=== PATIENT | female | born 1950 | race African-American/Black ===

== ENCOUNTER 2023-05-10 13:53 | Inpatient (IN) | payer MEDICARE, MEDICAID ==
[~2023-05-10] VITALS: Ht 322.6 cm; Wt 99.8 kg
[2023-05-10 14:12] VITALS: O2SAT 98
[2023-05-10 14:47] LABS: EOSINOPHILS % 0.7 % (0.0-5.0); HEMATOCRIT. 38.6 % (36.0-48.0); LYMPHOCYTES % 25.2 % (20.0-50.0); MEAN CORPUSCULAR HGB CONC 33.8 g/dL (31.0-37.0); MEAN CORPUSCULAR VOLUME 91.7 fL (81.0-99.0); MEAN PLATELET VOLUME 8.5 fl (7.4-10.4); MONOCYTES % 9.4 % (2.0-8.0); NEUTROPHILS % 63.7 % (40.0-76.0); PLATELET 304 x1000/uL (130-400); RED BLOOD CELL COUNT 4.21 mill/uL (4.2-5.4); RED CELL DISTRIBUTION WIDTH 13.6 % (11.6-14.6); WHITE BLOOD COUNT 6.3 x1000/uL (4.5-11.0)
[2023-05-10 14:57] LABS: INR 1.1; PROTHROMBIN TIME 11.5 sec (9.6-11.0)
[2023-05-10 14:59] LABS: CHLORIDE 106 mEq/L (98-107); INDEX HEMOLYSI 1 (1-3); INDEX ICTERIC 1 (1-4); INDEX LIPEMIC 1 (1-3); POTASSIUM 3.5 mEq/L (3.5-5.1); SODIUM 136 mEq/L (136-145)
[2023-05-10 15:11] LABS: ALANINE AMINOTRANSFERASE 20 IU/L (13-61); ALBUMIN 3.5 g/dL (3.4-5.0); ASPARTATE AMINOTRANSFERASE 28 IU/L (15-37); BILIRUBIN TOTAL 0.4 mg/dL (0.1-1.0); CARBON DIOXIDE 21 mEq/L (21-32); CREATININE 1.8 mg/dL (0.6-1.3); GLUCOSE 150 mg/dL (70-105); NT PRO B-TYPE NATRIURETIC PEP 451 pg/mL (5-125); PROTEIN TOTAL 8.3 g/dL (6.0-8.3); TROPONIN I HIGH SENSITIVITY 13 ng/L (<54); UREA NITROGEN BLOOD 15 mg/dL (7-21)
[2023-05-10 15:14] LABS: CALCIUM 9.2 mg/dL (8.5-10.1)
[2023-05-10] MEDS ORDERED: SODIUM CHLORIDE 0.9% 1,000 ML IV ONE (16:15)
[2023-05-10 17:06] LABS: CLARITY URINE CLOUDY (CLEAR); COLOR URINE YELLOW (YELLOW); GLUCOSE URINE NEGATIVE (NEGATIVE); KETONES URINE TRACE (NEGATIVE); LEUKOCYTE ESTERASE URINE 1+ (NEGATIVE); NITRITE URINE NEGATIVE (NEGATIVE); OCCULT BLOOD URINE NEGATIVE (NEGATIVE); PROTEIN URINE 1+ (NEGATIVE); SPECIFIC GRAVITY URINE 1.009 (1.005-1.030); UROBILINOGEN URINE 0.2 E.U./dL (0.2-1.0)
[2023-05-10 17:48] LABS: SQUAMOUS EPITHELIAL CELL URINE 1+ /lpf (RARE/1+)
[2023-05-10 17:49] LABS: RBC URINE 0-2 /hpf (0-2)
[2023-05-10 17:50] LABS: BACTERIA URINE 3+; YEAST URINE NONE SEEN
[2023-05-10] MEDS ORDERED: CEFTRIAXONE 1GM PREMIX 50 ML IV ONE (19:00)
[2023-05-10] MEDS ORDERED: CLONIDINE 0.1MG TABLET PO PRN (20:15)
[2023-05-10] MEDS ORDERED: DEXTROSE 50% WATER 50ML SYRINGE IV PRN (20:15)
[2023-05-10] MEDS: SODIUM CHLORIDE 0.9% 1,000 ML IV SCH (20:15)
[2023-05-10] MEDS ORDERED: DIPHENHYDRAMINE 50MG/ML VIAL IV PRN (20:15)
[2023-05-10] MEDS ORDERED: ACETAMINOPHEN 325MG TABLET PO PRN (20:15)
[2023-05-10] MEDS ORDERED: GUAIFENESIN 200MG/10ML SUGAR FREE UDC PO PRN (20:15)
[2023-05-10] MEDS ORDERED: IPRATROPIUM/ALBUTEROL 0.5-3(2.5)MG/3ML NEB HHN PRN (20:15)
[2023-05-10] MEDS ORDERED: DOCUSATE SODIUM 100MG CAPSULE PO PRN (20:15)
[2023-05-10] MEDS ORDERED: MAGNESIUM/ALUMINUM HYDROXIDE/SIMETHICONE 30ML UDC PO PRN (20:15)
[2023-05-10] MEDS: BLOOD SUGAR DIAGNOSTIC STRIP TEST SCH (21:00)
[2023-05-10] MEDS: INSULIN LISPRO 100 UNITS/ML SUBCUT SCH (21:00)
[2023-05-10] MEDS ORDERED: FAMOTIDINE 20MG/2ML VIAL IV SCH (21:00)
[2023-05-10] MEDS ORDERED: CEFTRIAXONE 1GM PREMIX 50 ML IV NR (21:30)
[2023-05-11] VITALS (7 sets, daily range): BP systolic 142–218; BP diastolic 67–89; PULSE 77–94; RESP 18–20; TEMP 97.4–98.8
[2023-05-11 01:11] LABS: CREATINE KINASE MB FRACTION 2.4 ng/mL (0.5-3.6)
[2023-05-11] MEDS: BLOOD SUGAR DIAGNOSTIC STRIP TEST SCH ×3 (06:28→21:00)
[2023-05-11] MEDS: INSULIN LISPRO 100 UNITS/ML SUBCUT SCH ×3 (06:33→21:00)
[2023-05-11 06:36] LABS: EOSINOPHILS % 1.3 % (0.0-5.0); HEMATOCRIT. 39.9 % (36.0-48.0); HEMOGLOBIN. 13.3 g/dL (12.0-16.0); LYMPHOCYTES % 36.7 % (20.0-50.0); MEAN CORPUSCULAR HEMOGLOBIN 30.6 pg (28.0-32.0); MEAN CORPUSCULAR HGB CONC 33.4 g/dL (31.0-37.0); MEAN CORPUSCULAR VOLUME 91.5 fL (81.0-99.0); MONOCYTES % 10.1 % (2.0-8.0); NEUTROPHILS % 50.9 % (40.0-76.0); PLATELET 307 x1000/uL (130-400); RED BLOOD CELL COUNT 4.36 mill/uL (4.2-5.4); RED CELL DISTRIBUTION WIDTH 13.5 % (11.6-14.6); WHITE BLOOD COUNT 6.4 x1000/uL (4.5-11.0)
[2023-05-11 07:38] LABS: CHLORIDE 104 mEq/L (98-107); INDEX HEMOLYSI 1 (1-3); INDEX ICTERIC 1 (1-4); INDEX LIPEMIC 1 (1-3); POTASSIUM 3.2 mEq/L (3.5-5.1); SODIUM 136 mEq/L (136-145)
[2023-05-11 07:53] LABS: ALANINE AMINOTRANSFERASE 22 IU/L (13-61); ALBUMIN 3.3 g/dL (3.4-5.0); ASPARTATE AMINOTRANSFERASE 32 IU/L (15-37); BILIRUBIN TOTAL 0.6 mg/dL (0.1-1.0); CALCIUM 9.2 mg/dL (8.5-10.1); CARBON DIOXIDE 24 mEq/L (21-32); CHOLESTEROL 207 mg/dL (<200); CREATINE KINASE MB FRACTION 2.4 ng/mL (0.5-3.6); CREATININE 1.3 mg/dL (0.6-1.3); GLUCOSE 108 mg/dL (70-105); HDL CHOLESTEROL 69 mg/dL (40-59); LDL CHOLESTEROL 129 mg/dL (5-100); PROTEIN TOTAL 8.3 g/dL (6.0-8.3); T4 FREE 1.23 ng/dL (0.76-1.46); TRIGLYCERIDE 83 mg/dL (0-150); TROPONIN I HIGH SENSITIVITY 28 ng/L (<54); UREA NITROGEN BLOOD 11 mg/dL (7-21)
[2023-05-11] MEDS: AMLODIPINE 5MG TABLET PO SCH (09:00)
[2023-05-11] MEDS ORDERED: PANTOPRAZOLE SODIUM 40 MG/VIAL IV SCH (09:00)
[2023-05-11] MEDS ORDERED: ENOXAPARIN 30MG/0.3ML SYR SUBCUT SCH (09:00)
[2023-05-11] MEDS: SODIUM CHLORIDE 0.9% 1,000 ML IV SCH ×2 (09:35→22:55)
[2023-05-11] MEDS ORDERED: POTASSIUM CHLORIDE 20MEQ/PACKET PO NR (09:45)
[2023-05-11 11:01] LABS: *AMPHETAMINES SCREEN URINE NEGATIVE (NEGATIVE); *BARBITURATES SCREEN URINE NEGATIVE (NEGATIVE); *BENZODIAZEPINES SCREEN URINE NEGATIVE (NEGATIVE); *COCAINE SCREEN URINE NEGATIVE (NEGATIVE); CANNABINOID URINE SCREEN NEGATIVE (NEGATIVE); ECSTASY MDMA SCREEN URINE NEGATIVE (NEGATIVE); METHADONE URINE SCREEN NEGATIVE (NEGATIVE); OPIATES URINE SCREEN NEGATIVE (NEGATIVE); PHENCYCLIDINE URINE SCREEN NEGATIVE (NEGATIVE)
[2023-05-11] MEDS ORDERED: CEFTRIAXONE 1,000 MG in DEXTROSE 5% WATER 50 ML IV SCH (21:00)
[2023-05-11] MEDS: ATORVASTATIN CALCIUM 20MG TABLET PO SCH (21:00)
[2023-05-12] MEDS ORDERED: HALOPERIDOL LACTATE 5MG/ML VIAL IM PRN ×2 (01:00→14:00)
[2023-05-12] MEDS ORDERED: HALOPERIDOL LACTATE 5MG/ML VIAL IM NR (01:15)
[2023-05-12] MEDS ORDERED: DIPHENHYDRAMINE 50MG/ML VIAL IM NR (01:15)
[2023-05-12] MEDS ORDERED: LORAZEPAM 2MG/ML CPJ IM NR (01:15)
[2023-05-12 04:00] VITALS: BP 113/69; PULSE 82; RESP 20; TEMP 97.8
[2023-05-12] MEDS: BLOOD SUGAR DIAGNOSTIC STRIP TEST SCH ×3 (06:55→17:20)
[2023-05-12 07:27] LABS: HEMATOCRIT 36.2 % (36.0-48.0); HEMOGLOBIN 12.5 g/dL (12.0-16.0); MEAN CORPUSCULAR HEMOGLOBIN 31.1 pg (28.0-32.0); MEAN CORPUSCULAR HGB CONC 34.5 g/dL (31.0-37.0); MEAN CORPUSCULAR VOLUME 90.2 fL (81.0-99.0); PLATELET 286 x1000/uL (130-400); RED BLOOD CELL COUNT 4.01 mill/uL (4.2-5.4); RED CELL DISTRIBUTION WIDTH 13.5 % (11.6-14.6)
[2023-05-12] MEDS: INSULIN LISPRO 100 UNITS/ML SUBCUT SCH ×3 (07:50→17:46)
[2023-05-12 08:00] VITALS: BP 173/70; PULSE 94; RESP 21; TEMP 96.4
[2023-05-12] MEDS ORDERED: HALO5TAB2 PO (08:10)
[2023-05-12] MEDS ORDERED: FAMOTIDINE 20MG/2ML VIAL IV SCH (09:00)
[2023-05-12] MEDS: ENOXAPARIN 40MG/0.4ML SYR SUBCUT SCH (09:00)
[2023-05-12] MEDS: AMLODIPINE 5MG TABLET PO SCH (09:00)
[2023-05-12 10:37] LABS: POTASSIUM 3.3 mEq/L (3.5-5.1)
[2023-05-12 10:38] LABS: CALCIUM 9.2 mg/dL (8.5-10.1)
[2023-05-12 10:42] LABS: CREATININE 1.2 mg/dL (0.6-1.3); PHOSPHORUS 3.5 mg/dL (2.5-4.9)
[2023-05-12 12:00] VITALS: BP 132/75; PULSE 82; RESP 18; TEMP 97.5
[2023-05-12] MEDS: SODIUM CHLORIDE 0.9% 1,000 ML IV SCH ×2 (12:15→22:19)
[2023-05-12] MEDS ORDERED: MAGNESIUM 2 G PREMIX 50 ML IV SCH (15:00)
[2023-05-12 16:00] VITALS: BP 147/77; PULSE 89; RESP 21; TEMP 98
[2023-05-12 20:52] VITALS: BP 154/60; PULSE 83; RESP 18; TEMP 97.5
[2023-05-12] MEDS: ATORVASTATIN CALCIUM 20MG TABLET PO SCH (21:00)
[2023-05-12] MEDS ORDERED: CEFTRIAXONE 1,000 MG in DEXTROSE 5% WATER 50 ML IV SCH (22:15)
[2023-05-13] MEDS: BLOOD SUGAR DIAGNOSTIC STRIP TEST SCH (06:35)
[2023-05-13 06:59] LABS: HEMOGLOBIN 13.6 g/dL (12.0-16.0); MEAN CORPUSCULAR VOLUME 91.4 fL (81.0-99.0); PLATELET 313 x1000/uL (130-400); RED BLOOD CELL COUNT 4.37 mill/uL (4.2-5.4); RED CELL DISTRIBUTION WIDTH 13.8 % (11.6-14.6); WHITE BLOOD COUNT 5.4 x1000/uL (4.5-11.0)
[2023-05-13 07:01] LABS: POTASSIUM 3.9 mEq/L (3.5-5.1)
[2023-05-13 07:12] LABS: CALCIUM 9.6 mg/dL (8.5-10.1); CREATININE 1.2 mg/dL (0.6-1.3)
[2023-05-13 08:00] VITALS: BP 158/91; PULSE 93; RESP 19; TEMP 95.9
[2023-05-13] MEDS ORDERED: AMLO5TAB88 PO (08:19)
[2023-05-13] MEDS ORDERED: SULF1TAB47 MT (08:19)
[2023-05-13] MEDS ORDERED: ATOR20TA PO (08:19)
[2023-05-13 08:38] VITALS: BP 158/91; PULSE 93; TEMP 95.9
[2023-05-13] MEDS: AMLODIPINE 5MG TABLET PO SCH (09:00)
[2023-05-13] MEDS: ENOXAPARIN 40MG/0.4ML SYR SUBCUT SCH (09:00)
[2023-05-13 12:00] VITALS: BP 151/62; PULSE 87; RESP 19; TEMP 97.5
== END 2023-05-13 13:00 | DRG 683 ==
LOC: ER 13:56 → EDBEDREQ 19:42 → ENRESERV 21:14 → 6EST 22:58 → UNDODISIN 05-13 13:30
PROVIDERS: ADMIT Internal Medicine; ATTEND Internal Medicine
PROC: 5A09357 Assistance with Respiratory Ventilation, Less than 24 Consecutive Hours, Continuous Positive Airway Pressure (ICD-10-PCS; principal; 2023-05-10)
DX: N17.9 Acute kidney failure, unspecified (principal); E44.1 Mild protein-calorie malnutrition; N39.0 Urinary tract infection, site not specified; F03.93 Unspecified dementia, unspecified severity, with mood disturbance; Z68.1 Body mass index [BMI] 19.9 or less, adult; R62.7 Adult failure to thrive; E78.5 Hyperlipidemia, unspecified; Z66 Do not resuscitate; I12.9 Hypertensive chronic kidney disease with stage 1 through stage 4 chronic kidney disease, or unspecified chronic kidney disease; F03.90 Unspecified dementia, unspecified severity, without behavioral disturbance, psychotic disturbance, mood disturbance, and anxiety; E87.6 Hypokalemia; N18.31 Chronic kidney disease, stage 3a; R79.89 Other specified abnormal findings of blood chemistry; F31.9 Bipolar disorder, unspecified; F20.9 Schizophrenia, unspecified; E11.22 Type 2 diabetes mellitus with diabetic chronic kidney disease; F41.9 Anxiety disorder, unspecified; Z99.3 Dependence on wheelchair
CPT/HCPCS: 36415; 71045; 80048; 80053; 80061; 80305; 81003; 82553; 82962; 83036; 83735; 83880; 84100; 84439; 84443; 84481; 84484; 85025; 85027; 85379; 93005; 93306; 97162; 97166; 99285; C9113; J0696; J1200; J1630; J1650; J2060; J3475; J3490; J7030; J7060

== ENCOUNTER 2023-07-19 00:43 | Emergency (ER) | payer MEDICARE, MEDICAID ==
[~2023-07-19] VITALS: Ht 162.6 cm; Wt 75.0 kg
[~2023-07-19 00:43] MED LIST: AMLO5TAB88 PO; ATOR20TA PO; HALO5TAB2 PO; SULF1TAB47 MT
[2023-07-19 00:50] VITALS: O2SAT 100
[2023-07-19 01:08] LABS: BASOPHILS % 0.5 % (0.0-2.0); EOSINOPHILS % 1.3 % (0.0-5.0); HEMATOCRIT. 38.1 % (36.0-48.0); HEMOGLOBIN. 12.5 g/dL (12.0-16.0); LYMPHOCYTES % 37.8 % (20.0-50.0); MEAN CORPUSCULAR HGB CONC 32.9 g/dL (31.0-37.0); MEAN CORPUSCULAR VOLUME 91.3 fL (81.0-99.0); MEAN PLATELET VOLUME 8.3 fl (7.4-10.4); MONOCYTES % 11.4 % (2.0-8.0); PLATELET 275 x1000/uL (130-400); RED BLOOD CELL COUNT 4.17 mill/uL (4.2-5.4); RED CELL DISTRIBUTION WIDTH 13.7 % (11.6-14.6); WHITE BLOOD COUNT 7.1 x1000/uL (4.5-11.0)
[2023-07-19 01:13] LABS: CHLORIDE 107 mEq/L (98-107); INDEX HEMOLYSI 1 (1-3); INDEX ICTERIC 1 (1-4); INDEX LIPEMIC 1 (1-3); POTASSIUM 3.5 mEq/L (3.5-5.1); SODIUM 140 mEq/L (136-145)
[2023-07-19 01:22] LABS: ACETAMINOPHEN <2 ug/mL ug/mL (10-30); ALANINE AMINOTRANSFERASE 18 IU/L (13-61); ALBUMIN 3.4 g/dL (3.4-5.0); ASPARTATE AMINOTRANSFERASE 17 IU/L (15-37); BILIRUBIN TOTAL 0.6 mg/dL (0.1-1.0); CALCIUM 9.2 mg/dL (8.5-10.1); CARBON DIOXIDE 24 mEq/L (21-32); CREATININE 1.3 mg/dL (0.6-1.3); ETHANOL BLOOD < 10 mg/dL (<10); GLUCOSE 118 mg/dL (70-105); UREA NITROGEN BLOOD 31 mg/dL (7-21)
[2023-07-19] MEDS ORDERED: POLY119P2 MT (02:53)
[2023-07-19] MEDS ORDERED: CLONIDINE 0.1MG TABLET PO NR (03:15)
[2023-07-19] MEDS ORDERED: POLYETHYLENE GLYCOL 3350 (17GM) 1 DOSE PACK PO NR (03:15)
[2023-07-19 09:11] VITALS: BP 151/58; PULSE 89; RESP 20; TEMP 98
== END 2023-07-19 09:12 ==
LOC: ER 00:43
DX: K59.00 Constipation, unspecified (principal); I10 Essential (primary) hypertension; E11.9 Type 2 diabetes mellitus without complications; Z00.00 Encounter for general adult medical examination without abnormal findings; Z98.890 Other specified postprocedural states
CPT/HCPCS: 36415; 71045; 74018; 80053; 80307; 80320; 80329; 85025; 99284; G0480